=== PATIENT | male | born 1985 | race Caucasian/White ===

== ENCOUNTER 2018-12-04 07:08 | Emergency (ER) | payer OTHER ==
[2018-12-04] MEDS ORDERED: MECLIZINE 12.5 MG TAB PO STA (07:40)
[2018-12-04] MEDS ORDERED: METOCLOPRAMIDE 10 MG TAB PO STA (07:40)
--- NOTE | 2018-12-04 07:43 | ED ---
General Adult HPI - General Chief complaint: Dizziness Stated complaint: Vertigo Time Seen by Provider: 12/04/18 07:32 Source: patient, RN notes reviewed Mode of arrival: wheelchair Limitations: no limitations - History of Present Illness Initial comments: Patient is a pleasant 33-year-old male presenting to the emergency department with concerns for dizziness. Onset of symptoms was yesterday morning. Symptoms have been present throughout the day however mostly with head movements and upright position. Symptoms are controlled with remaining still. Patient woke up this morning with similar symptoms. Patient did have similar symptoms around a year ago that just lasted a day or 2 as well. Patient describes dizziness as a spinning type sensation. No ear problems. No weakness. No confusion. No loss of sensation. No visual changes. Patient states there may be some minimal associated nausea. - Related Data Previous Rx's Medication Instructions Recorded Metoclopramide HCl [Reglan] 10 mg PO Q6HR PRN #15 tablet 12/04/18 Allergies Allergy/AdvReac Type Severity Reaction Status Date / Time azithromycin Allergy Rash/Hives Verified 12/04/18 07:51 [email or web address] [From Suprax] Allergy Anaphylaxis Verified 12/04/18 07:51 strawberry Allergy Anaphylaxis Verified 12/04/18 07:51 Review of Systems ROS Statement: Those systems with pertinent positive or pertinent negative responses have been documented in the HPI. ROS Other: All systems not noted in ROS Statement are negative. Constitutional: Denies: fever Eyes: Denies: eye pain ENT: Denies: ear pain Respiratory: Denies: cough Cardiovascular: Denies: chest pain Endocrine: Denies: fatigue Gastrointestinal: Denies: abdominal pain Genitourinary: Denies: dysuria Musculoskeletal: Denies: back pain Skin: Denies: rash Neurological: Reports: vertigo. Denies: headache, weakness, numbness, paresthesias, confusion, abnormal gait Past Medical History Additional Past Medical History / Comment(s): Vertigo History of Any Multi-Drug Resistant Organisms: None Reported Past Surgical History: Hernia Repair, Orthopedic Surgery Past Psychological History: No Psychological Hx Reported Smoking Status: Never smoker Past Alcohol Use History: None Reported Past Drug Use History: None Reported General Exam Limitations: no limitations General appearance: alert, in no apparent distress Head exam: Present: atraumatic Eye exam: Present: normal appearance, PERRL, EOMI. Absent: nystagmus ENT exam: Present: normal oropharynx Neck exam: Present: normal inspection Respiratory exam: Present: normal lung sounds bilaterally Cardiovascular Exam: Present: regular rate, normal rhythm GI/Abdominal exam: Present: soft. Absent: tenderness Extremities exam: Present: normal inspection Neurological exam: Present: alert, oriented X3, CN II-XII intact. Absent: motor sensory deficit Expanded Neurological exam: Present: protecting the airway Patient oriented to: Present: person, place, time Speech: Present: fluid speech Cranial nerves: EOM's Intact: Normal, Facial Sensation: Normal Cerebellar function: Finger to Nose: Normal Sensory exam: Upper Extremity Light Touch: Normal, Lower Extremity Light Touch: Normal Motor strength exam: RUE: 5, LUE: 5, RLE: 5, LLE: 5 Eye Response: (4) open spontaneously Motor Response: (6) obeys commands Verbal Response: (5) oriented Psychiatric exam: Present: normal affect, normal mood Skin exam: Present: normal color Course Vital Signs 12/04/18 12/04/18 07:22 08:00 Temperature 97.8 F Pulse Rate 63 Respiratory 16 18 Rate Blood Pressure 133/77 138/80 O2 Sat by Pulse 99 Oximetry Medical Decision Making - Medical Decision Making Patient reevaluated and resting comfortably in bed. Patient is able to immediately without difficulty. Patient feels improved. Patient updated on results and need for follow-up. - Radiology Data Radiology results: report reviewed (Computed tomography scan of the brain reveals no acute process) Disposition Clinical Impression: Vertigo Disposition: HOME SELF-CARE Condition: Stable Instructions (If sedation given, give patient instructions): Dizziness (ED) Additional Instructions: [id number] Antivert as needed. Please follow-up with ENT and neurology and primary care physician. Return for uncontrolled dizziness, weakness or confusion, visual changes, worsening symptoms or other concerns. Prescriptions: Metoclopramide HCl [Reglan] 10 mg PO Q6HR PRN #15 tablet PRN Reason: Nausea Is patient prescribed a controlled substance at d/c from ED?: No Referrals: Peg Nuñez III, MD [STAFF PHYSICIAN] - 1-2 days Albert Escudero MD [STAFF PHYSICIAN] - 1-2 days Krishna Durand MD [STAFF PHYSICIAN] - 1-2 days Time of Disposition: 09:08
--- NOTE | 2018-12-04 08:24 | CT ---
EXAMINATION TYPE: CT brain wo con DATE OF EXAM: 12/04/2018 COMPARISON: None. HISTORY: Dizziness CT DLP: 1085 mGycm. Automated Exposure Control for Dose Reduction was Utilized. TECHNIQUE: CT scan of the head is performed without contrast. FINDINGS: There is no acute intracranial hemorrhage, mass effect, or midline shift identified. The ventricles and sulci are within normal limits in size. Castillo-white matter differentiation is maintai mary. Mastoid air cells show no suspicious opacification. The globes are intact and the visualized sin uses are clear. IMPRESSION: No acute intracranial hemorrhage, mass effect, or midline shift is seen.
[2018-12-04 08:55] VITALS: RESP 18
[2018-12-04 09:25] VITALS: BP 132/77; PULSE 57; TEMP 97.6
== END 2018-12-04 09:20 | disposition home or self-care (01) ==
LOC: EC 07:08
DX: R42 Dizziness and giddiness (principal); Z88.1 Allergy status to other antibiotic agents; Z91.018 Allergy to other foods
CPT/HCPCS: 70450; 99284